=== PATIENT | male | born 1975 | race Caucasian/White ===

== ENCOUNTER 2017-06-06 20:19 | Observation (INO) ==
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
[2017-06-06] MEDS ORDERED: Ziprasidone injection 20 MG/ML VIAL IM ONE (22:01)
[2017-06-06 22:09] LABS: Basophils # 0.1 K/mcL (0.0-0.2); Basophils % 0.6 %; Eosinophils % 0.2 %; Hematocrit 42.2 % (37.5-50.1); Hemoglobin 14.4 g/dL (12.9-16.9); Immature Granulocytes % 0.4 % (0-4); Lymphocytes # 1.2 K/mcL (0.6-4.6); Lymphocytes % 7.9 %; Mean Corpuscular HGB Conc 34.1 g/dL (31.6-35.5); Mean Corpuscular Hemoglobin 30.4 pg (28.0-33.3); Mean Platelet Volume 8.9 fL (9.4-12.4); Monocytes # 0.7 K/mcL (0.0-1.3); Neutrophils # 12.5 K/mcL (1.6-8.9); Platelet Count 265 K/mcL (140-400); Red Blood Count 4.74 M/mcL (4.19-5.50); Red Cell Distribution Width 14.3 % (11.5-14.5); Segmented Neutrophils % 85.9 %
[2017-06-06 22:22] LABS: BUN/Creatinine Ratio 18 (6-26); Blood Urea Nitrogen 24 mg/dL (8-26); Calcium 9.7 mg/dL (8.6-10.8); Carbon Dioxide 24 mEq/L (19-29); Chloride 97 mEq/L (98-109); Glucose 99 mg/dL (70-99); Osmolality,Calculated 282 (280-300); Potassium 4.2 mEq/L (3.5-4.5); Sodium 134 mEq/L (136-145); eGFR For African Americans > 60 (> 60); eGFR For Non-African Americans 59 (> 60)
[2017-06-06 22:25] LABS: Acetaminophen < 1.0 mcg/mL (10-30); Ethanol < 10 mg/dL (0-10); Salicylate < 5.0 mg/dL (15-30)
[2017-06-06] MEDS ORDERED: clonazePAM 0.5 MG TABLET PO STA (22:35)
[2017-06-06 23:31] LABS: Bilirubin,Urine Small (Negative); Blood,Urine Trace (Negative); Clarity,Urine Cloudy (Clear); Color,Urine Dark Yellow (Yellow); Glucose,Urine (UA) Normal (Normal); Ketones,Urine Trace mg/dL (Negative); Leukocyte Esterase,Urine Trace (Negative); Nitrite,Urine Negative (Negative); PH,Urine 5.5 pH Units (5.0-8.0); Protein,Urine 30 mg/dL (Neg-Trace); Urobilinogen,Urine Normal (Normal)
[2017-06-06 23:34] LABS: Squamous Epithelial Cell,Urine Many per lpf (None-Few); WBC,Urine 50-100 per hpf (0-3)
[2017-06-06 23:36] LABS: Amphetamine Screen,Urine Positive ng/mL (Cutoff=1000); Barbiturate Screen,Urine Negative ng/mL (Cutoff=200); Benzodiazepines Screen,Urine Negative ng/mL (Cutoff=200); Cannabinoid Screen,Urine Negative ng/mL (Cutoff = 50); Cocaine Screen,Urine Positive ng/mL (Cutoff= 300); Opiate Screen,Urine Positive ng/mL (Cutoff=300); Phencyclidine Screen,Urine Negative ng/mL (Cutoff=25)
[2017-06-06 23:42] LABS: Hyaline Casts,Urine Moderate per lpf (None-Few)
[2017-06-06 23:44] LABS: Bacteria,Urine Moderate per hpf (None-Few); Granular Casts,Urine Moderate per lpf (None Seen)
[2017-06-07] MEDS ORDERED: CefTRIAXone 1,000 MG VIAL IM ONE (00:17)
--- NOTE | 2017-06-07 01:26 | Emergency Department Note ---
Disposition Clinical Impression: Hallucinations Disposition: Admitted As Inpatient Condition: Good Referrals: NONE,PCP [Primary Care Provider] - Forms: ED Satisfaction Letter Time of Disposition: 01:42 General Adult HPI - General Chief complaint: ED Psychiatric Symptoms Stated complaint: Hallucinating Time Seen by Provider: 06/06/17 21:39 Source: patient Limitations: no limitations - History of Present Illness Pain Scale: 0 - Related Data Previous Rx's Medication Instructions Recorded Bacitracin OINT [Ak-Tracin] 1 appl TP BID #1 tube 01/31/16 Clindamycin [Cleocin] 150 mg PO Q6HR #40 capsule 01/31/16 HydrOXYzine 10 mg PO TID #15 tablet 01/31/16 Potassium Chloride 20 meq PO DAILY 4 Days 03/07/17 Allergies Allergy/AdvReac Type Severity Reaction Status Date / Time Penicillins Allergy See Verified 12/08/15 19:35 Comments Constitutional: Denies: fever, chills, weakness, weight change Eyes: Denies: eye pain, eye discharge, vision change ENT ED: Denies: ear pain, throat pain, dental pain, hearing loss, epistaxis, congestion, dysphagia Cardiovascular: Denies: chest pain, palpitations, dyspnea on exertion, edema, syncope Respiratory: Denies: cough, dyspnea, wheezes, hemoptysis, stridor Gastrointestinal: Denies: abdominal pain, nausea, vomiting, diarrhea, constipation, hematemesis, melena, hematochezia Genitourinary: Denies: urgency, dysuria, frequency, hematuria Musculoskeletal: Denies: back pain, neck pain, arthralgia, myalgia Integumentary: Denies: rash, abrasion, lesions Neurological: Denies: headache, weakness, numbness, paresthesias, confusion, abnormal gait, vertigo Psychiatric: Reports: auditory hallucinations, visual hallucinations. Denies: anxiety, depression, suicidal thoughts, homicidal thoughts Endocrine: Denies: fatigue Hematological/Lymphatic: Denies: easy bleeding, easy bruising Allergic/Immunologic: Denies: facial swelling, urticaria Past Medical History - Past Medical History Medical history: Reports: no medical history, other Surgical history: Reports: no surgical history Psychiatric history: Reports: depression - Social History Smoking Status: Current every day smoker Smokeless Tobacco Status: No Alcohol use: Reports: occasionally Drug use: Reports: opiates, IV Drug Use, other Physical Exam - General Limitations: no limitations General appearance: alert, in no apparent distress Course Course Narrative: Patient signed out by the daytime physician Dr. anika sullivan. We reviewed the presentation symptoms and medical clearance to be completed. Patient will be evaluated by the psychiatric team for auditory hallucinations and history of manic issues. Patient denies any suicidal or homicidal thoughts at this point. He has been having some nondescript burning with urination. Denies any section returned diseases. Labs are pending at this point. Psychiatric evaluation be completed. Detailed documentation completed by the previous physician please see that for completion physical exam. Patient is resting comfortably in the bed no distress denying any other symptoms at this point. Patient has no other concerns or issues noted. - Reevaluation(s) Reevaluation #1: Patient provided with intramuscular Rocephin for the urinary tract infection. Psychiatric team to evaluate him at the bedside at this time. Medical clearance completed. Time: 01:26 Reevaluation #2: Patient will be accepted to the psychiatric unit here at our facility. Admission orders place. No other recommendations at this time Time: 01:42 Vital Signs Temperature 98.1 F 06/06/17 21:25 Pulse Rate 95 06/06/17 21:25 Respiratory Rate 18 06/06/17 21:25 Blood Pressure 148/92 06/06/17 21:25 O2 Sat by Pulse Oximetry 95 06/06/17 21:25 Temperature 98.1 F 06/06/17 21:25 Pulse Rate 92 06/07/17 00:20 Respiratory Rate 16 06/07/17 00:20 Blood Pressure 144/88 06/07/17 00:20 O2 Sat by Pulse Oximetry 96 06/07/17 00:20 Oxygen Delivery Oxygen Delivery Room Air Medical Decision Making - [facility] Narrative Medical decision making narrative: Hallucinations, manic episodes on a urinary tract infection - Medical Records Medical records reviewed: Yes I reviewed the patient's medical records. - Lab Data Lab results reviewed: Yes I reviewed the patient's lab results. Result diagrams: 06/06/17 22:03 06/06/17 22:03 Lab Results 06/06/17 06/06/17 06/06/17 Range/Units 22:03 22:03 23:23 WBC 14.6 H (4.3-11.1) K/mcL RBC 4.74 (4.19-5.50) M/mcL Hgb 14.4 (12.9-16.9) g/dL Hct 42.2 (37.5-50.1) % MCV 89.0 (83.0-100.0) fL MCH 30.4 (28.0-33.3) pg MCHC 34.1 (31.6-35.5) g/dL RDW 14.3 (11.5-14.5) % Plt Count 265 (140-400) K/mcL MPV 8.9 L (9.4-12.4) fL Immature Gran % 0.4 (0-4) % Seg Neutrophils % 85.9 % Lymphocytes % 7.9 % Monocytes % 5.0 % Eosinophils % 0.2 % Basophils % 0.6 % Neutrophils # 12.5 H (1.6-8.9) K/mcL Lymphocytes # 1.2 (0.6-4.6) K/mcL Monocytes # 0.7 (0.0-1.3) K/mcL Eosinophils # 0.0 (0.0-0.6) K/mcL Basophils # 0.1 (0.0-0.2) K/mcL Sodium 134 L (136-145) mEq/L Potassium 4.2 (3.5-4.5) mEq/L Chloride 97 L (98-109) mEq/L Carbon Dioxide 24 (19-29) mEq/L BUN 24 (8-26) mg/dL Creatinine 1.33 H (0.72-1.25) mg/dL Est GFR ( Amer) > 60 (> 60) Est GFR (Non-Af Amer) 59 L (> 60) BUN/Creatinine Ratio 18 (6-26) Glucose 99 (70-99) mg/dL Calculated Osmolality 282 (280-300) Calcium 9.7 (8.6-10.8) mg/dL Urine Color Dark Yellow (Yellow) Urine Clarity Cloudy A (Clear) Urine pH 5.5 (5.0-8.0) pH Units Ur Specific [place] 1.020 (1.010-1.025) Urine Protein 30 H (Neg-Trace) mg/dL Urine Glucose (UA) Normal (Normal) mg/dL Urine Ketones Trace H (Negative) mg/dL Urine Blood Trace H (Negative) Urine Nitrite Negative (Negative) Urine Bilirubin Small H (Negative) Urine Urobilinogen Normal (Normal) mg/dL Ur Leukocyte Esterase Trace H (Negative) Urine Microscopic RBC 5-15 H (0-3) per hpf Urine Microscopic WBC 50-100 H (0-3) per hpf Ur Squamous Epith Cells Many H (None-Few) per lpf Urine Bacteria Moderate H (None-Few) per hpf Hyaline Casts Moderate H (None-Few) per lpf Granular Casts Moderate H (None Seen) per lpf Ur Culture Indicated? YES A (NO) Salicylates < 5.0 L (15-30) mg/dL Urine Opiates Screen (Hckibt=830) ng/mL Acetaminophen < 1.0 L (10-30) mcg/mL Ur Barbiturates Screen (Tiihyy=554) ng/mL Ur Phencyclidine Scrn (Cutoff=25) ng/mL Ur Amphetamines Screen (Krjiwd=1222) ng/mL U Benzodiazepines Scrn (Vtmjik=370) ng/mL Urine Cocaine Screen (Cutoff= 300) ng/mL U Marijuana (THC) Screen (Cutoff = 50) ng/mL Ethyl Alcohol < 10 (0-10) mg/dL 06/06/17 Range/Units 23:23 WBC (4.3-11.1) K/mcL RBC (4.19-5.50) M/mcL Hgb (12.9-16.9) g/dL Hct (37.5-50.1) % MCV (83.0-100.0) fL MCH (28.0-33.3) pg MCHC (31.6-35.5) g/dL RDW (11.5-14.5) % Plt Count (140-400) K/mcL MPV (9.4-12.4) fL Immature Gran % (0-4) % Seg Neutrophils % % Lymphocytes % % Monocytes % % Eosinophils % % Basophils % % Neutrophils # (1.6-8.9) K/mcL Lymphocytes # (0.6-4.6) K/mcL Monocytes # (0.0-1.3) K/mcL Eosinophils # (0.0-0.6) K/mcL Basophils # (0.0-0.2) K/mcL Sodium (136-145) mEq/L Potassium (3.5-4.5) mEq/L Chloride (98-109) mEq/L Carbon Dioxide (19-29) mEq/L BUN (8-26) mg/dL Creatinine (0.72-1.25) mg/dL Est GFR ( Amer) (> 60) Est GFR (Non-Af Amer) (> 60) BUN/Creatinine Ratio (6-26) Glucose (70-99) mg/dL Calculated Osmolality (280-300) Calcium (8.6-10.8) mg/dL Urine Color (Yellow) Urine Clarity (Clear) Urine pH (5.0-8.0) pH Units Ur Specific [place] (1.010-1.025) Urine Protein (Neg-Trace) mg/dL Urine Glucose (UA) (Normal) mg/dL Urine Ketones (Negative) mg/dL Urine Blood (Negative) Urine Nitrite (Negative) Urine Bilirubin (Negative) Urine Urobilinogen (Normal) mg/dL Ur Leukocyte Esterase (Negative) Urine Microscopic RBC (0-3) per hpf Urine Microscopic WBC (0-3) per hpf Ur Squamous Epith Cells (None-Few) per lpf Urine Bacteria (None-Few) per hpf Hyaline Casts (None-Few) per lpf Granular Casts (None Seen) per lpf Ur Culture Indicated? (NO) Salicylates (15-30) mg/dL Urine Opiates Screen Positive H (Hwwkas=354) ng/mL Acetaminophen (10-30) mcg/mL Ur Barbiturates Screen Negative (Xdxwns=584) ng/mL Ur Phencyclidine Scrn Negative (Cutoff=25) ng/mL Ur Amphetamines Screen Positive H (Lvhblq=8067) ng/mL U Benzodiazepines Scrn Negative (Rzsuzj=039) ng/mL Urine Cocaine Screen Positive H (Cutoff= 300) ng/mL U Marijuana (THC) Screen Negative (Cutoff = 50) ng/mL Ethyl Alcohol (0-10) mg/dL - Radiology Data Radiology results reviewed: Yes I reviewed the patient's radiology results. CT imaging of the head is negative for acute intracranial pathology or issues at this time
[2017-06-07] MEDS ORDERED: MOM Conc 10 ML UD.LIQ PO PRN (02:33)
[2017-06-07] MEDS ORDERED: *HR* LORazepam 2 MG/ML VIAL IM PRN (02:33)
[2017-06-07] MEDS ORDERED: hydrOXYzine pamoate 25 MG CAPSULE PO PRN (02:33)
[2017-06-07] MEDS ORDERED: Mag Hydrox/Al Hydrox/Simeth 30 ML UDC PO PRN (02:33)
[2017-06-07] MEDS ORDERED: *HR* LORazepam 1 MG TABLET PO PRN (02:33)
[2017-06-07] MEDS ORDERED: Acetaminophen 325 MG TABLET PO PRN (02:33)
[2017-06-07] MEDS ORDERED: traZODone 50 MG TABLET PO PRN (02:33)
[2017-06-07] MEDS ORDERED: Haloperidol Lactate 5 MG/ML VIAL IM PRN (02:33)
[2017-06-07] MEDS ORDERED: Nicotine 21 MG PATCH.TD24 TD SCH (09:00)
[2017-06-07 09:50] VITALS: BP 105/71
--- NOTE | 2017-06-07 11:12 | Discharge Summary ---
Date of Encounter: 06/07/17 Time of Encounter: 10:30 History of Present Illness Chief complaint: Hallucination, paranoia Admitted From: Emergency Dept History of Present Illness: Mr. Larsen is a 41 year old male admitted from the emergency room for evaluation treatment of hallucination and paranoia. Patient reports that he has been using heroin, methamphetamine and cocaine. He did experience seeing shadows, he was suspicious of his and his brother trying to poison him. Urine tox screen was positive for opiates, amphetamine and cocaine. Patient was hospitalized in 2016 with similar presentation and was discharged on a small dose of Zoloft that she did not continue to take, he did not follow-up as advised at that time. From the record he had a long history of substance abuse and legal problems. 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 Past Med Surg Social Fam HX - Past Medical History Medical history: no medical history, other - Past Psychiatric History Psychiatric history: Reports: previous psychiatric hospitalization - Past Surgical History Surgical History: no surgical history - Social History Smoking Status: Current every day smoker Smokeless Tobacco Status: No Alcohol use: occasionally Drug use: opiates, IV Drug Use, other - Family History Mother Adopted: No Family Member Ethnicity: Non- Living Status: Hx Family Cardiac Disorders: No Hx Family Respiratory Disorders: No Hx Family Cancer: Yes (Kidney) Hx Family GI Disorders: No Hx Family Endocrine Disorder: No Hx Family Neuromuscular Disorders: No Hx Family Neurologic Disorders: No Hx Family HEENT Disorders: No Hx Family Autoimmune Disorders: No Medications - Discharge Medications No Known Home Drugs 06/07/17 [History] 3 Allergy/AdvReac Type Severity Reaction Status Date / Time Penicillins Allergy See Verified 06/07/17 08:51 Comments Review of Systems Psychiatric: Reports: visual hallucinations Mental Status Exam - Mental Status Exam Patient orientation: Yes Person, Yes Time, Yes Place Level of alertness: Alert Patient appearance: Appropriate, Well Groomed, Unkempt, Thin Behavior: calm, cooperative, talkative Psychomotor activity: Normal Eye contact: Maintains Eye Contact Mood description: Euthymic/stable Affect description: congruent with mood, euthymic Speech pattern: Normal rate, Normal rhythm, Normal tone Speech Volume: Normal Thought process: Linear, Goal Oriented, Tangential Thought Content: No Suicidal ideation, No Homicidal ideation, No Overt delusions Perceptual Disturbances: No Auditory hallucinations, Yes Visual hallucinations Judgment: Limited Insight: Partial Results - Vital Signs Vital signs: Temp Pulse Resp BP Pulse Ox 98.3 F 93 16 105/71 96 06/07/17 09:00 06/07/17 09:00 06/07/17 09:00 06/07/17 09:00 06/07/17 00:20 - Labs Labs: Laboratory Last Values WBC 14.6 K/mcL (4.3-11.1) H 06/06/17 22:03 RBC 4.74 M/mcL (4.19-5.50) 06/06/17 22:03 Hgb 14.4 g/dL (12.9-16.9) 06/06/17 22:03 Hct 42.2 % (37.5-50.1) 06/06/17 22:03 MCV 89.0 fL (83.0-100.0) 06/06/17 22:03 MCH 30.4 pg (28.0-33.3) 06/06/17 22:03 MCHC 34.1 g/dL (31.6-35.5) 06/06/17 22:03 RDW 14.3 % (11.5-14.5) 06/06/17 22:03 Plt Count 265 K/mcL (140-400) 06/06/17 22:03 MPV 8.9 fL (9.4-12.4) L 06/06/17 22:03 Immature Gran % 0.4 % (0-4) 06/06/17 22:03 Seg Neutrophils % 85.9 % 06/06/17 22:03 Lymphocytes % 7.9 % 06/06/17 22:03 Monocytes % 5.0 % 06/06/17 22:03 Eosinophils % 0.2 % 06/06/17 22:03 Basophils % 0.6 % 06/06/17 22:03 Neutrophils # 12.5 K/mcL (1.6-8.9) H 06/06/17 22:03 Lymphocytes # 1.2 K/mcL (0.6-4.6) 06/06/17 22:03 Monocytes # 0.7 K/mcL (0.0-1.3) 06/06/17 22:03 Eosinophils # 0.0 K/mcL (0.0-0.6) 06/06/17 22:03 Basophils # 0.1 K/mcL (0.0-0.2) 06/06/17 22:03 Sodium 134 mEq/L (136-145) L 06/06/17 22:03 Potassium 4.2 mEq/L (3.5-4.5) 06/06/17 22:03 Chloride 97 mEq/L (98-109) L 06/06/17 22:03 Carbon Dioxide 24 mEq/L (19-29) 06/06/17 22:03 BUN 24 mg/dL (8-26) 06/06/17 22:03 Creatinine 1.33 mg/dL (0.72-1.25) H 06/06/17 22:03 Est GFR ( Amer) > 60 (> 60) 06/06/17 22:03 Est GFR (Non-Af Amer) 59 (> 60) L 06/06/17 22:03 BUN/Creatinine Ratio 18 (6-26) 06/06/17 22:03 Glucose 99 mg/dL (70-99) 06/06/17 22:03 Calculated Osmolality 282 (280-300) 06/06/17 22:03 Calcium 9.7 mg/dL (8.6-10.8) 06/06/17 22:03 Urine Color Dark Yellow (Yellow) 06/06/17 23:23 Urine Clarity Cloudy (Clear) A 06/06/17 23:23 Urine pH 5.5 pH Units (5.0-8.0) 06/06/17 23:23 Ur Specific [place] 1.020 (1.010-1.025) 06/06/17 23:23 Urine Protein 30 mg/dL (Neg-Trace) H 06/06/17 23:23 Urine Glucose (UA) Normal mg/dL (Normal) 06/06/17 23:23 Urine Ketones Trace mg/dL (Negative) H 06/06/17 23:23 Urine Blood Trace (Negative) H 06/06/17 23:23 Urine Nitrite Negative (Negative) 06/06/17 23:23 Urine Bilirubin Small (Negative) H 06/06/17 23:23 Urine Urobilinogen Normal mg/dL (Normal) 06/06/17 23:23 Ur Leukocyte Esterase Trace (Negative) H 06/06/17 23:23 Urine Microscopic RBC 5-15 per hpf (0-3) H 06/06/17 23:23 Urine Microscopic WBC 50-100 per hpf (0-3) H 06/06/17 23:23 Ur Squamous Epith Cells Many per lpf (None-Few) H 06/06/17 23:23 Urine Bacteria Moderate per hpf (None-Few) H 06/06/17 23:23 Hyaline Casts Moderate per lpf (None-Few) H 06/06/17 23:23 Granular Casts Moderate per lpf (None Seen) H 06/06/17 23:23 Ur Culture Indicated? YES (NO) A 06/06/17 23:23 Salicylates < 5.0 mg/dL (15-30) L 06/06/17 22:03 Urine Opiates Screen Positive ng/mL (Kkcdcm=250) H 06/06/17 23:23 Acetaminophen < 1.0 mcg/mL (10-30) L 06/06/17 22:03 Ur Barbiturates Screen Negative ng/mL (Ehlgwk=543) 06/06/17 23:23 Ur Phencyclidine Scrn Negative ng/mL (Cutoff=25) 06/06/17 23:23 Ur Amphetamines Screen Positive ng/mL (Ilumwp=2554) H 06/06/17 23:23 U Benzodiazepines Scrn Negative ng/mL (Hzmyco=033) 06/06/17 23:23 Urine Cocaine Screen Positive ng/mL (Cutoff= 300) H 06/06/17 23:23 U Marijuana (THC) Screen Negative ng/mL (Cutoff = 50) 06/06/17 23: Ethyl Alcohol < 10 mg/dL (0-10) 06/06/17 22:03 Diagnosis - Discharge Diagnosis (1) Drug-induced paranoia or hallucinations Status: Acute (2) Polysubstance dependence including opioid type drug, continuous use Status: Acute Assessment and Plan - Patient/Caregiver Discharge Instructions Activity: resume usual activities as tolerated Diet: regular diet - Follow up Plan Follow up with: NONE,PCP [Primary Care Provider] - Functional capacity at discharge: independent ambulation Overall status at discharge: Stable Disposition: Home, Self-Care Provider Date of admission: 06/07/17 01:44 Primary care physician: PCP NONE Discharging clinician: Dylon Gooden Hospital Course Hospital course: Mr. Larsen is a 41 year old male admitted for evaluation of hallucinations and paranoia. Patient had long history of substance abuse and dependence including opiates amphetamine and cocaine. Urine tox screen was positive for opiates amphetamine and cocaine. Patient was not on any psychotropic medication and has not been seen by psychiatrist as outpatient and admitted to regular use of drugs including heroin. Patient reported good night sleep denied any suicidal ideation or hallucinations, denied any homicidal ideation he was medically stable and reported that he has to go to work and declined any medication or treatment. He was discharged in stable condition. Follow-up plans as per school social worker report - Time Spent with Patient Total time spent providing and/or coordinating discharge services: Greater than 30 minutes Procedures - Procedures Procedures: Medication Management, Crisis Stabilization, Supportive Therapy, Group Therapy, Psychoeducational Therapy Quality - Multiple Antipsychotics Patient discharged on 2 or more antipsychotic medications: No
== END 2017-06-07 13:50 | disposition home or self-care (01) ==
LOC: EMEROO 20:19 → 1ANU 06-07 01:44 → INTOOBSV 06-07 01:44 → 1ANU 06-07 02:09
PROVIDERS: ADMIT Psychiatry & Neurology Psychiatry; ATTEND Psychiatry & Neurology Psychiatry

== ENCOUNTER 2022-06-23 21:22 | Inpatient (IN) ==
[2022-06-23 23:59] LABS: Basophils # 0.1 K/mcL (0.0-0.2); Basophils % 0.7 %; Eosinophils % 0.1 %; Hematocrit 40.8 % (37.5-50.1); Immature Granulocytes % 0.3 % (0-4); Lymphocytes # 1.2 K/mcL (0.6-4.6); Lymphocytes % 10.4 %; Mean Corpuscular HGB Conc 34.3 g/dL (31.6-35.5); Mean Corpuscular Volume 90.5 fL (83.0-100.0); Mean Platelet Volume 10.1 fL (9.4-12.4); Monocytes # 0.8 K/mcL (0.0-1.3); Monocytes % 6.7 %; Neutrophils # 9.6 K/mcL (1.6-8.9); Platelet Count 284 K/mcL (140-400); Red Blood Count 4.51 M/mcL (4.19-5.50); Red Cell Distribution Width 12.6 % (11.5-14.5); Segmented Neutrophils % 81.8 %; White Blood Count 11.7 K/mcL (4.3-11.1)
[2022-06-24 00:32] LABS: BUN/Creatinine Ratio 33 (6-26); Blood Urea Nitrogen 31 mg/dL (6-20); Calcium 9.5 mg/dL (8.6-10.3); Carbon Dioxide 19 mEq/L (23-29); Chloride 101 mEq/L (98-107); Glucose 82 mg/dL (70-105); Osmolality,Calculated 288 (280-300); Potassium 4.3 mEq/L (3.5-5.1); Sodium 136 mEq/L (136-145); Troponin I < 0.03 ng/mL (< 0.04)
[2022-06-24] MEDS ORDERED: Ziprasidone 20 MG, Closed System Device IM Kit 1 EACH in Water for inj. (sterile) 1 ML IM PRN (00:56)
[2022-06-24] MEDS ORDERED: Water for inj. (sterile) 10 ML ONE (01:47)
[2022-06-24] MEDS ORDERED: Ziprasidone 20 MG/VIAL VIAL IM ONE (01:47)
[2022-06-24 01:54] LABS: Influenza A PCR Negative (Negative); Influenza B PCR Negative (Negative); Resp. Syncytial Virus PCR Negative (Negative)
[2022-06-24 01:57] LABS: SARS-CoV-2 by PCR (In House) Negative (Negative)
[2022-06-24 03:14] LABS: Bilirubin,Urine Small (Negative); Blood,Urine Negative (Negative); Calcium Oxalate Crystals,Urine Present per hpf; Clarity,Urine Clear (Clear); Color,Urine Yellow (Yellow); Glucose,Urine (UA) Normal (Normal); Hyaline Casts,Urine Few per lpf (None Seen); Ketones,Urine 40 mg/dL (Negative); Leukocyte Esterase,Urine Negative (Negative); Mucus,Urine Few per lpf (None-Few); Nitrite,Urine Negative (Negative); Protein,Urine 50 mg/dL (Neg-Trace); Specific Gravity,Urine > 1.030 (1.010-1.025); Squamous Epithelial Cell,Urine Few per hpf (None-Few)
[2022-06-24 03:21] LABS: Amphetamine Screen,Urine Positive ng/mL (Cutoff=1000); Barbiturate Screen,Urine Negative ng/mL (Cutoff=200); Benzodiazepines Screen,Urine Negative ng/mL (Cutoff=200); Cannabinoid Screen,Urine Negative ng/mL (Cutoff = 50); Cocaine Screen,Urine Negative ng/mL (Cutoff= 300); Opiate Screen,Urine Negative ng/mL (Cutoff=300); Phencyclidine Screen,Urine Negative ng/mL (Cutoff=25)
[2022-06-24 03:47] LABS: Acetaminophen < 10 mcg/mL (10-20); Alanine Aminotransferase 49 Units/L (7-52); Albumin 4.1 g/dL (3.5-5.7); Albumin/Globulin Ratio 1.4 (1.1-2.2); Alkaline Phosphatase 57 Units/L (34-104); Aspartate Amino Transferase 87 Units/L (13-39); Bilirubin,Direct 0.5 mg/dL (0.0-0.2); Bilirubin,Indirect 0.8 mg/dL (0.0-1.0); Bilirubin,Total 1.3 mg/dL (0.3-1.0); Ethanol 10 mg/dL (Less than 10); Globulin 2.9 g/dL (2.4-3.5); Salicylate < 2.5 mg/dL (15.0-30.0)
[2022-06-24 20:59] LABS: Influenza A PCR Negative (Negative); Influenza B PCR Negative (Negative); Resp. Syncytial Virus PCR Negative (Negative); SARS-CoV-2 by PCR (In House) Negative (Negative)
[2022-06-25] MEDS ORDERED: *HR* LORazepam 2 MG/ML VIAL IM PRN (01:36)
[2022-06-25] MEDS ORDERED: Acetaminophen 325 MG TABLET PO PRN (01:36)
[2022-06-25] MEDS ORDERED: QUEtiapine Fumarate 25 MG TABLET PO PRN (01:36)
[2022-06-25] MEDS ORDERED: haloperidoL 5 MG TABLET PO PRN (01:36)
[2022-06-25] MEDS ORDERED: *HR* LORazepam 1 MG TABLET PO PRN (01:36)
[2022-06-25] MEDS ORDERED: Haloperidol Lactate 5 MG/ML VIAL IM PRN (01:36)
[2022-06-25] MEDS ORDERED: Nicotine 21 MG PATCH.TD24 TD SCH (09:00)
[2022-06-25] MEDS ORDERED: hydrOXYzine pamoate 25 MG CAPSULE PO PRN (09:50)
[2022-06-25] MEDS ORDERED: Mag Hydrox/Al Hydrox/Simeth 30 ML UDC PO PRN (09:50)
[2022-06-25] MEDS ORDERED: MOM Conc 10 ML UD.LIQ PO PRN (09:50)
[2022-06-25 10:19] VITALS: BP 120/76; PULSE 74; TEMP 97.5; O2SAT 95
[2022-06-25] MEDS ORDERED: *HR* Buprenorphine HCl 8 MG TAB.SUBL SL SCH (11:30)
== END 2022-06-25 11:08 | disposition home or self-care (01) | DRG 776 ==
LOC: EMEROOARM 21:22 → 1ANU 06-25 01:17
PROVIDERS: ADMIT Psychiatry & Neurology Psychiatry; ATTEND Psychiatry & Neurology Psychiatry